=== PATIENT | female | born 1955 | race Caucasian/White ===

== ENCOUNTER 2018-09-24 22:08 | Inpatient (IN) ==
[2018-09-24] MEDS ORDERED: SODIUM CHLORIDE 0.9% 1,000 ML IV STA (22:30)
[2018-09-24] MEDS ORDERED: ONDANSETRON 4 MG/2 ML VIAL IV STA (22:30)
[2018-09-24] MEDS ORDERED: AMPICILLIN/SULBACTAM 3,000 MG in SODIUM CHLORIDE 0.9% 100 ML IV STA (22:30)
[2018-09-24 23:08] LABS: Basophils # 0.1 10*3/uL (0.0-0.2); Basophils % 0.5 % (0.0-0.8); Eosinophils # 0.6 10*3/uL (0.0-0.87); Eosinophils % 6.1 % (0.00-10.9); Hematocrit 39.1 VOL% (35.7-47.0); Hemoglobin 12.8 GM/DL (12.0-16.0); Immature Granulocytes % 0.5 %; Immature Granulocytes Absolute 0.05 #; Lymphocytes # 3.9 10*3/uL (1.4-4.0); Lymphocytes % 42.6 % (21.3-54.2); Mean Corpuscular HGB Conc 32.7 GM/DL (32-36); Mean Corpuscular Volume 92.7 FL (87-102); Mean Platelet Volume 9.4 FL (9.6-12.0); Monocytes % 6.9 % (1.7-12.7); Neutrophils % 43.4 % (38.7-73.9); Platelet Count 308 T/CUMM (130-400); Red Blood Count 4.22 MC/CUMM (3.8-5.5); Red Cell Distribution Width 12.5 % (9.3-17.3); White Blood Count 9.2 T/CUMM (4-12)
[2018-09-24 23:11] LABS: Barbiturates Screen,Urine Negative (Negative); Benzodiazepines Screen,Urine Positive (Negative); Cannabinoid Screen,Urine Negative (Negative); Opiate Screen,Urine Negative (Negative); Phencyclidine Screen,Urine Negative (Negative)
[2018-09-24 23:14] LABS: Apearance,Urine CLEAR (Clear); Bilirubin,Urine Negative (Negative); Blood, Urine Negative (Negative); Glucose,Urine (UA) Negative (Negative); Ketones,Urine Negative (Negative); Mucus,Urine Occasional /LPF (Occasional); Nitrite,Urine Negative (Negative); Protein,Urine Negative; Squamous Epithelial Cell,Urine Occasional /HPF (0-10); Urine Color Yellow (Yellow); Urine Specific Gravity 1.005 (1.001-1.035); Urine Urobilinogen < 2.0 EU/DL (0.2-1.0); WBC,Urine <1 /HPF (0-6)
[2018-09-24] MEDS ORDERED: NOREPINEPHRINE 4 MG/4 ML VIAL IV ONE (23:17)
[2018-09-24 23:20] LABS: INR 0.9
[2018-09-24 23:25] LABS: Acetaminophen < 2.0 UG/ML (10-30); Salicylate < 2.8 MG/DL (2.8-20)
[2018-09-24 23:26] LABS: Alanine Aminotransferase 25 U/L (13-56); Albumin 3.3 G/DL (3.4-5.0); Alkaline Phosphatase 123 U/L (45-117); Aspartate Amino Transferase 20 U/L (0-37); Bilirubin,Total < 0.39 MG/DL (0.2-1.0); Blood Urea Nitrogen 8 MG/DL (7-18); Calcium 8.7 MG/DL (8.5-10.1); Glucose 144 MG/DL (74-106); Osmolality,Calculated 279.4 MOS/KG (273-304); Total Protein 7.7 G/DL (6.4-8.3); Troponin I < 0.015 NG/ML (0.00-0.045)
[2018-09-25] MEDS ORDERED: NOREPINEPHRINE 8 MG in SODIUM CHLORIDE 0.9% 242 ML IV PRN (00:11)
[2018-09-25] MEDS ORDERED: NICOTINE 21 MG/24 HR PATCH TRANSDERM PRN (00:30)
[2018-09-25] MEDS ORDERED: ONDANSETRON 4 MG/2 ML VIAL IV PRN (00:30)
[2018-09-25 00:52] LABS: ABG Base Excess 0.1 MMOL/L (-2.5-2.5); ABG Oxygen Saturation 99.3 % (95-100); ABG PCO2 60.7 MM HG (35-48); ABG PH 7.282 (7.35-7.45); ABG PO2 292.7 MM HG (80-95); ABG TCO2 29.9 MMOL/L (23-27)
[2018-09-25] MEDS ORDERED: AMPICILLIN/SULBACTAM 3,000 MG VIAL ONE (01:19)
[2018-09-25] MEDS ORDERED: SODIUM CHLORIDE 0.9% 100 ML IV ONE (01:21)
[2018-09-25] MEDS: SODIUM CHLORIDE 0.9% 1,000 ML IV SCH ×3 (02:06→17:30)
[2018-09-25] MEDS: PROPOFOL 1,000 MG/100 ML BOTTLE IV SCH ×3 (02:23→20:37)
[2018-09-25 04:29] LABS: ABG Base Excess -0.7 MMOL/L (-2.5-2.5); ABG HCO3 23.9 MMOL/L (20-26); ABG PCO2 44.1 MM HG (35-48); ABG TCO2 22.2 MMOL/L (23-27)
[2018-09-25 04:31] LABS: Allen Test Positive; Pt O2 Delivery Device Ventilator
[2018-09-25 04:38] LABS: Basophils # 0.1 10*3/uL (0.0-0.2); Basophils % 0.5 % (0.0-0.8); Eosinophils # 0.2 10*3/uL (0.0-0.87); Eosinophils % 2.3 % (0.00-10.9); Hematocrit 36.9 VOL% (35.7-47.0); Immature Granulocytes % 0.4 %; Immature Granulocytes Absolute 0.04 #; Lymphocytes # 2.1 10*3/uL (1.4-4.0); Lymphocytes % 21.2 % (21.3-54.2); Mean Corpuscular HGB Conc 32.5 GM/DL (32-36); Mean Corpuscular Volume 93.2 FL (87-102); Mean Platelet Volume 9.2 FL (9.6-12.0); Monocytes % 6.9 % (1.7-12.7); Neutrophils % 68.7 % (38.7-73.9); Platelet Count 304 T/CUMM (130-400); Red Blood Count 3.96 MC/CUMM (3.8-5.5); Red Cell Distribution Width 12.5 % (9.3-17.3)
[2018-09-25 04:59] LABS: Alanine Aminotransferase 19 U/L (13-56); Albumin 3.1 G/DL (3.4-5.0); Alkaline Phosphatase 106 U/L (45-117); Aspartate Amino Transferase 19 U/L (0-37); Bilirubin,Total < 0.39 MG/DL (0.2-1.0); Blood Urea Nitrogen 8 MG/DL (7-18); Calcium 8.4 MG/DL (8.5-10.1); Glucose 134 MG/DL (74-106); Osmolality,Calculated 282.1 MOS/KG (273-304); Total Protein 6.7 G/DL (6.4-8.3)
[2018-09-25] MEDS: PIPERACILLIN/TAZOBACTAM 3,375 MG in SODIUM CHLORIDE 0.9% 100 ML IV SCH ×3 (12:04→16:27)
[2018-09-26] MEDS: PIPERACILLIN/TAZOBACTAM 3,375 MG in SODIUM CHLORIDE 0.9% 100 ML IV SCH ×4 (00:15→23:59)
[2018-09-26] MEDS: PROPOFOL 1,000 MG/100 ML BOTTLE IV SCH ×5 (00:16→21:47)
[2018-09-26] MEDS: SODIUM CHLORIDE 0.9% 1,000 ML IV SCH (03:00)
[2018-09-26 03:59] LABS: Allen Test Positive; Pt O2 Delivery Device Ventilator
[2018-09-26 04:00] LABS: ABG HCO3 24.4 MMOL/L (20-26); ABG PCO2 38.8 MM HG (35-48); ABG PH 7.407 (7.35-7.45)
[2018-09-26 06:06] LABS: Basophils % 0.5 % (0.0-0.8); Eosinophils # 0.4 10*3/uL (0.0-0.87); Eosinophils % 4.9 % (0.00-10.9); Hematocrit 34.4 VOL% (35.7-47.0); Hemoglobin 11.2 GM/DL (12.0-16.0); Immature Granulocytes % 0.4 %; Immature Granulocytes Absolute 0.03 #; Lymphocytes # 1.8 10*3/uL (1.4-4.0); Lymphocytes % 22.7 % (21.3-54.2); Mean Corpuscular HGB Conc 32.6 GM/DL (32-36); Mean Corpuscular Volume 93.5 FL (87-102); Mean Platelet Volume 9.7 FL (9.6-12.0); Monocytes % 6.5 % (1.7-12.7); Platelet Count 268 T/CUMM (130-400); Red Blood Count 3.68 MC/CUMM (3.8-5.5); Red Cell Distribution Width 12.6 % (9.3-17.3); White Blood Count 7.9 T/CUMM (4-12)
[2018-09-26 06:36] LABS: Calcium 8.2 MG/DL (8.5-10.1); Osmolality,Calculated 285.7 MOS/KG (273-304)
[2018-09-26 09:18] LABS: ABG Base Excess 0.6 MMOL/L (-2.5-2.5); ABG HCO3 24.9 MMOL/L (20-26); ABG Oxygen Saturation 98.3 % (95-100); ABG PCO2 41.8 MM HG (35-48); ABG PH 7.394 (7.35-7.45); ABG TCO2 22.5 MMOL/L (23-27); Allen Test Positive; Pt O2 Delivery Device Ventilator
[2018-09-26] MEDS ORDERED: SODIUM CHLOR 0.45% KCL 20 MEQ 20 MEQ/1,000 ML BAG IV SCH (10:00)
[2018-09-26] MEDS: SODIUM CHLOR 0.45% KCL 20 MEQ 20 MEQ/1,000 ML BAG IV SCH ×2 (10:34→19:10)
[2018-09-26] MEDS: amLODIPine 10 MG TABLET PO SCH (14:28)
[2018-09-26] MEDS ORDERED: hydrALAZINE 20 MG/1 ML VIAL IV PRN (20:29)
[2018-09-27] MEDS: SODIUM CHLOR 0.45% KCL 20 MEQ 20 MEQ/1,000 ML BAG IV SCH ×2 (04:16→12:57)
[2018-09-27] MEDS: PROPOFOL 1,000 MG/100 ML BOTTLE IV SCH (04:16)
[2018-09-27 04:31] LABS: ABG Base Excess 1.2 MMOL/L (-2.5-2.5); ABG HCO3 25.5 MMOL/L (20-26); ABG Oxygen Saturation 97.9 % (95-100); ABG PCO2 43.8 MM HG (35-48); ABG PH 7.391 (7.35-7.45); ABG TCO2 23.1 MMOL/L (23-27)
[2018-09-27 05:46] LABS: Basophils % 0.5 % (0.0-0.8); Eosinophils # 0.4 10*3/uL (0.0-0.87); Eosinophils % 5.5 % (0.00-10.9); Hematocrit 38.2 VOL% (35.7-47.0); Hemoglobin 12.7 GM/DL (12.0-16.0); Immature Granulocytes % 0.9 %; Immature Granulocytes Absolute 0.07 #; Lymphocytes # 1.5 10*3/uL (1.4-4.0); Lymphocytes % 18.5 % (21.3-54.2); Mean Corpuscular HGB Conc 33.2 GM/DL (32-36); Mean Corpuscular Volume 92.3 FL (87-102); Mean Platelet Volume 9.6 FL (9.6-12.0); Monocytes % 6.4 % (1.7-12.7); Neutrophils % 68.2 % (38.7-73.9); Platelet Count 323 T/CUMM (130-400); Red Blood Count 4.14 MC/CUMM (3.8-5.5); Red Cell Distribution Width 12.9 % (9.3-17.3); White Blood Count 8.1 T/CUMM (4-12)
[2018-09-27 06:00] LABS: Calcium 8.9 MG/DL (8.5-10.1); Osmolality,Calculated 280.1 MOS/KG (273-304)
[2018-09-27] MEDS: SODIUM CHLORIDE 0.9% 1,000 ML IV SCH (09:26)
[2018-09-27] MEDS: amLODIPine 10 MG TABLET PO SCH (09:45)
[2018-09-27] MEDS: PANTOPRAZOLE 40 MG TABLET PO SCH (11:34)
[2018-09-27] MEDS: ENOXAPARIN 40 MG/0.4 ML SYRINGE SUBCUT SCH (11:34)
[2018-09-27] MEDS: levETIRAcetam 500 MG TABLET PO SCH ×2 (11:35→20:55)
[2018-09-27] MEDS: PIPERACILLIN/TAZOBACTAM 3,375 MG in SODIUM CHLORIDE 0.9% 100 ML IV SCH (12:58)
[2018-09-27] MEDS ORDERED: Desvenlafaxine Succinate [Pristiq] 100 MG PO SCH (13:01)
[2018-09-27] MEDS: clonazePAM 0.5 MG TABLET PO SCH (20:55)
[2018-09-28] MEDS ORDERED: ACETAMINOPHEN 325 MG TABLET PO PRN (01:52)
[2018-09-28] MEDS ORDERED: LEVOTHYROXINE 25 MCG TABLET PO SCH (06:00)
[2018-09-28] MEDS: levETIRAcetam 500 MG TABLET PO SCH (08:24)
[2018-09-28] MEDS: clonazePAM 0.5 MG TABLET PO SCH ×2 (08:24→14:11)
[2018-09-28] MEDS: amLODIPine 10 MG TABLET PO SCH (08:24)
[2018-09-28] MEDS: PANTOPRAZOLE 40 MG TABLET PO SCH (08:24)
[2018-09-28] MEDS: ENOXAPARIN 40 MG/0.4 ML SYRINGE SUBCUT SCH (08:24)
[2018-09-28 13:58] VITALS: BP 147/71
[2018-09-28] MEDS ORDERED: LORazepam 2 MG/1 ML VIAL IM ONE (16:00)
== END 2018-09-28 16:09 | DRG 817 ==
LOC: EDUNIT# → EDBD → N.ED 22:08 → SUATTDRO 09-25 00:30 → N.EDINP 09-25 00:30 → N.ICU 09-25 00:45 → N.2E 09-27 12:43
PROVIDERS: ADMIT Internal Medicine; ATTEND Internal Medicine

== ENCOUNTER 2019-07-01 18:50 | Observation (INO) ==
[2019-07-01 19:58] LABS: Basophils # 0.1 10*3/uL (0.0-0.2); Basophils % 0.3 % (0.0-0.8); Eosinophils # 0.4 10*3/uL (0.0-0.87); Eosinophils % 2.3 % (0.00-10.9); Hematocrit 36.9 VOL% (35.7-47.0); Hemoglobin 12.4 GM/DL (12.0-16.0); Immature Granulocytes % 0.5 %; Immature Granulocytes Absolute 0.08 #; Lymphocytes # 2.1 10*3/uL (1.4-4.0); Lymphocytes % 13.4 % (21.3-54.2); Mean Corpuscular HGB Conc 33.6 GM/DL (32-36); Mean Corpuscular Volume 93.9 FL (87-102); Mean Platelet Volume 8.9 FL (9.6-12.0); Monocytes % 6.3 % (1.7-12.7); Neutrophils % 77.2 % (38.7-73.9); Platelet Count 320 T/CUMM (130-400); Red Blood Count 3.93 MC/CUMM (3.8-5.5); Red Cell Distribution Width 12.3 % (9.3-17.3); White Blood Count 15.8 T/CUMM (4-12)
[2019-07-01 20:09] LABS: PT Patient Result 10.9 SECS (9.8-11.9); Partial Thromboplastin Time 30.5 SECS (23.9-33.8)
[2019-07-01 20:20] LABS: Alanine Aminotransferase 64 U/L (13-56); Albumin 3.1 G/DL (3.4-5.0); Alkaline Phosphatase 135 U/L (45-117); Aspartate Amino Transferase 48 U/L (0-37); Blood Urea Nitrogen 13 MG/DL (7-18); Calcium 8.5 MG/DL (8.5-10.1); Estimated Glom Filtration Rate 59 ML/MIN; Glucose 90 MG/DL (74-106); Osmolality,Calculated 267.2 MOS/KG (273-304); Total Protein 7.5 G/DL (6.4-8.3); Troponin I < 0.015 NG/ML (0.00-0.045)
[2019-07-01] MEDS ORDERED: cefTRIAXone 1,000 MG in SODIUM CHLORIDE 0.9% 100 ML IV STA (21:19)
[2019-07-01] MEDS ORDERED: AZITHROMYCIN INJ 500 MG in SODIUM CHLORIDE 0.9% 250 ML IV STA (21:20)
[2019-07-01 21:52] LABS: Apearance,Urine CLEAR (Clear); Bacteria,Urine Occasional /HPF (Few); Blood, Urine Negative (Negative); Glucose,Urine (UA) Negative (Negative); Hyaline Casts,Urine 4 /LPF (0-3); Ketones,Urine Negative (Negative); Mucus,Urine Many /LPF (Occasional); Nitrite,Urine Negative (Negative); Protein,Urine 30 MG/DL; Squamous Epithelial Cell,Urine Occasional /HPF (0-10); Urine Color Amber (Yellow); Urine Specific Gravity 1.035 (1.001-1.035)
[2019-07-01 21:53] LABS: Bilirubin,Urine Small mg/dL (Negative)
[2019-07-01] MEDS ORDERED: NICOTINE 21 MG/24 HR PATCH TRANSDERM PRN (23:10)
[2019-07-01] MEDS ORDERED: ONDANSETRON 4 MG/2 ML VIAL IV PRN (23:10)
[2019-07-01] MEDS ORDERED: MORPHINE 4 MG/1 ML VIAL IV PRN (23:10)
[2019-07-01] MEDS ORDERED: diphenhydrAMINE CAP 25 MG CAPSULE PO PRN (23:10)
[2019-07-01] MEDS ORDERED: hydrALAZINE 20 MG/1 ML VIAL IV PRN (23:10)
[2019-07-01] MEDS ORDERED: ZALEPLON 5 MG CAPSULE PO PRN (23:10)
[2019-07-01] MEDS ORDERED: GLUCAGON 1 MG VIAL IM PRN (23:10)
[2019-07-01] MEDS ORDERED: ACETAMINOPHEN 325 MG TABLET PO PRN (23:10)
[2019-07-01] MEDS ORDERED: DEXTROSE 10% 250 ML BAG IV PRN (23:17)
[2019-07-02] MEDS ORDERED: ENOXAPARIN 100 MG/ML SYRINGE SUBCUT SCH (01:00)
[2019-07-02] MEDS: ALBUTEROL INHALER 8 GM INH SCH ×2 (01:22→06:10)
[2019-07-02] MEDS ORDERED: ENOXAPARIN 80 MG/0.8 ML SYRINGE SUBCUT ONE (01:30)
[2019-07-02 03:59] LABS: Basophils % 0.3 % (0.0-0.8); Eosinophils # 0.4 10*3/uL (0.0-0.87); Eosinophils % 3.1 % (0.00-10.9); Hematocrit 34.9 VOL% (35.7-47.0); Hemoglobin 11.4 GM/DL (12.0-16.0); Immature Granulocytes % 0.4 %; Immature Granulocytes Absolute 0.05 #; Lymphocytes # 2.5 10*3/uL (1.4-4.0); Lymphocytes % 21.2 % (21.3-54.2); Mean Corpuscular HGB Conc 32.7 GM/DL (32-36); Mean Corpuscular Volume 95.4 FL (87-102); Mean Platelet Volume 9.1 FL (9.6-12.0); Monocytes % 7.9 % (1.7-12.7); Neutrophils % 67.1 % (38.7-73.9); Platelet Count 291 T/CUMM (130-400); Red Blood Count 3.66 MC/CUMM (3.8-5.5); Red Cell Distribution Width 12.4 % (9.3-17.3); White Blood Count 11.7 T/CUMM (4-12)
[2019-07-02 04:27] LABS: Calcium 8.4 MG/DL (8.5-10.1); Osmolality,Calculated 273.8 MOS/KG (273-304)
[2019-07-02] MEDS ORDERED: PANTOPRAZOLE 40 MG TABLET PO SCH (09:00)
[2019-07-02] MEDS ORDERED: LEVOTHYROXINE 25 MCG TABLET PO SCH (09:00)
[2019-07-02] MEDS ORDERED: amLODIPine 10 MG TABLET PO SCH (09:00)
[2019-07-02] MEDS ORDERED: DOCUSATE SODIUM 100 MG CAPSULE PO SCH (09:00)
[2019-07-02] MEDS ORDERED: ENOXAPARIN 40 MG/0.4 ML SYRINGE SUBCUT SCH (09:00)
[2019-07-02] MEDS ORDERED: DESVENLAFAXINE 50 MG TABLET PO SCH (09:00)
[2019-07-02] MEDS ORDERED: levETIRAcetam 500 MG TABLET PO SCH (09:00)
[2019-07-02] MEDS ORDERED: POTASSIUM CHLORIDE 20 MEQ TABLET PO ONE (09:53)
[2019-07-02 10:39] VITALS: BP 124/81
[2019-07-02] MEDS ORDERED: cefTRIAXone 1,000 MG in SYRINGE 1 EACH IV SCH (21:00)
[2019-07-02] MEDS ORDERED: AZITHROMYCIN INJ 500 MG in SODIUM CHLORIDE 0.9% 250 ML IV SCH (21:00)
== END 2019-07-02 11:15 | disposition home or self-care (01) ==
LOC: EDBD → EDUNIT# → N.ED 18:50 → N.EDINP 23:10 → INTOOBSV 23:10 → SUATTDRO 23:10 → N.2W 23:45
PROVIDERS: ADMIT Internal Medicine; ATTEND Internal Medicine